=== PATIENT | male | born 1970 | race Two or more races ===

== ENCOUNTER 2017-09-06 11:57 | Outpatient (CLI) | payer OTHER | END 2017-09-06 11:58 | disposition home or self-care (01) | LOC: LAB 11:57 | DX: Z12.11 Encounter for screening for malignant neoplasm of colon (principal); I10 Essential (primary) hypertension; Z12.5 Encounter for screening for malignant neoplasm of prostate; Z01.84 Encounter for antibody response examination ==

== ENCOUNTER 2017-10-10 12:42 | Outpatient (CLI) | payer OTHER | END 2017-10-10 12:43 | disposition home or self-care (01) | LOC: LAB 12:42 | DX: R31.9 Hematuria, unspecified (principal); Z11.59 Encounter for screening for other viral diseases ==

== ENCOUNTER 2018-05-19 11:09 | Outpatient (CLI) | payer OTHER | END 2018-05-19 15:00 | disposition home or self-care (01) | LOC: LAB 11:09 | DX: J11.1 Influenza due to unidentified influenza virus with other respiratory manifestations (principal); J06.9 Acute upper respiratory infection, unspecified ==

== ENCOUNTER → 2018-06-20 09:00 | Outpatient (CLI) | payer OTHER ==
[~2018-06-20 09:00] MED LIST: ZESTRIL10 M1
== END | disposition home or self-care (01) ==
LOC: LAB 09:00
DX: E78.49 Other hyperlipidemia (principal); R42 Dizziness and giddiness; Z00.00 Encounter for general adult medical examination without abnormal findings

== ENCOUNTER 2018-06-26 09:09 | Emergency (ER) | payer OTHER ==
[~2018-06-26] VITALS: Ht 167.6 cm; Wt 59.0 kg
[2018-06-26] MEDS ORDERED: ZESTRIL10 M1 (10:02)
== END 2018-06-26 11:08 | disposition home or self-care (01) ==
LOC: ER 09:09
DX: S90.02XA Contusion of left ankle, initial encounter (principal); W22.8XXA Striking against or struck by other objects, initial encounter; Y93.89 Activity, other specified; Y92.89 Other specified places as the place of occurrence of the external cause; Y99.8 Other external cause status

== ENCOUNTER 2019-10-18 06:00 | Outpatient (CLI) | payer OTHER | END 2019-10-18 15:00 | disposition home or self-care (01) | LOC: LAB 06:00 | PROVIDERS: ATTEND Urology | DX: E03.8 Other specified hypothyroidism (principal); E29.1 Testicular hypofunction; R97.20 Elevated prostate specific antigen [PSA]; R31.1 Benign essential microscopic hematuria; R73.09 Other abnormal glucose ==

== ENCOUNTER 2019-11-08 08:00 | Outpatient (CLI) | payer OTHER | END 2019-11-08 15:00 | disposition home or self-care (01) | LOC: PPH VACUNA 08:00 | DX: Z23 Encounter for immunization (principal) ==

== ENCOUNTER 2020-01-11 09:52 | Outpatient (CLI) | payer OTHER | END 2020-01-11 14:55 | disposition home or self-care (01) | LOC: LAB 09:52 | DX: Z03.818 Encounter for observation for suspected exposure to other biological agents ruled out (principal) ==

== ENCOUNTER 2020-02-05 14:59 | Outpatient (CLI) | payer OTHER | END 2020-02-05 15:00 | disposition home or self-care (01) | LOC: PPH VACUNA 14:59 | DX: Z23 Encounter for immunization (principal) ==

== ENCOUNTER 2020-07-15 15:07 | Outpatient (CLI) | payer OTHER | END 2020-07-15 16:03 | disposition home or self-care (01) | LOC: LAB 15:07 | PROVIDERS: ATTEND Anesthesiology | DX: Z03.818 Encounter for observation for suspected exposure to other biological agents ruled out (principal) ==

== ENCOUNTER → 2020-09-18 | Outpatient (CLI) | payer OTHER | END | disposition home or self-care (01) | LOC: LAB 09:03 | PROVIDERS: ATTEND Emergency Medicine Pediatric Emergency Medicine | DX: Z03.818 Encounter for observation for suspected exposure to other biological agents ruled out (principal) ==

== ENCOUNTER 2020-11-18 11:24 | Outpatient (CLI) | payer OTHER | END 2020-11-18 12:24 | disposition home or self-care (01) | LOC: PPH VACUNA 11:24 | PROVIDERS: ATTEND Emergency Medicine Pediatric Emergency Medicine | DX: Z23 Encounter for immunization (principal) ==

== ENCOUNTER 2021-10-27 08:00 | Outpatient (CLI) | payer OTHER | END 2021-10-27 08:05 | disposition home or self-care (01) | LOC: PPH VACUNA 08:00 | PROVIDERS: ATTEND Emergency Medicine Pediatric Emergency Medicine | DX: Z23 Encounter for immunization (principal) ==

== ENCOUNTER → 2022-04-13 06:26 | Outpatient (CLI) | payer OTHER | END | disposition home or self-care (01) | LOC: LAB 06:26 | PROVIDERS: ATTEND Internal Medicine | DX: K63.5 Polyp of colon (principal); I67.1 Cerebral aneurysm, nonruptured; I10 Essential (primary) hypertension; Z13.1 Encounter for screening for diabetes mellitus; Z13.220 Encounter for screening for lipoid disorders; Z13.29 Encounter for screening for other suspected endocrine disorder; E55.9 Vitamin D deficiency, unspecified ==

== ENCOUNTER 2022-11-08 09:00 | Outpatient (CLI) | payer OTHER | END 2022-11-08 09:10 | disposition home or self-care (01) | LOC: PPH VACUNA 09:00 | PROVIDERS: ATTEND Emergency Medicine Pediatric Emergency Medicine | DX: Z23 Encounter for immunization (principal) ==

== ENCOUNTER 2023-01-10 07:16 | Outpatient (CLI) | payer OTHER | END 2023-01-10 08:59 | disposition home or self-care (01) | LOC: TOM 07:16 | PROVIDERS: ATTEND Anesthesiology | DX: I67.1 Cerebral aneurysm, nonruptured (principal) | CPT/HCPCS: 70496 ==

== ENCOUNTER 2024-09-13 13:13 | Outpatient (CLI) | payer OTHER | END 2024-09-13 13:27 | disposition home or self-care (01) | LOC: SONOGRAMA 13:13 | DX: R31.29 Other microscopic hematuria (principal) ==